=== PATIENT | female | born 1980 | race African-American/Black ===

== ENCOUNTER 2017-01-25 20:14 | Emergency (ER) | payer OTHER ==
[~2017-01-25 20:14] MED LIST: ACETAMINOPHEN650 M1 PO; ALDACTONE25 MG PO; BACTRIM DS TABL1 TA1 PO; BLOOD PRESSURE PILL; CALCIUM 500 +1 EAC2 PO; CIPRO PO; COREG PO; FIORICET 50-321 EACH PO; FLEXERIL10 MG PO; HCTZ PO; HYDROCHLOROTHIA25 MG PO; HYDROCODON-ACE1 EA11 PO; KCL PO; LASIX PO; LEVAQUIN PO; LEVAQUIN750 MG PO; LISINOPRIL5 MG PO; LOPRESSOR PO; MOTRIN600 MG PO; NAPROXEN PO; PEN-VEE K PO; PHENERGAN PO; PYRIDIUM PO; ULTRAM PO; VICODIN PO; ZITHROMAX1 G/PKT PO
== END 2017-01-25 22:03 | disposition home or self-care (01) ==
LOC: CED 20:14 → CFTX 20:14
DX: K04.7 Periapical abscess without sinus (principal); F17.210 Nicotine dependence, cigarettes, uncomplicated
CPT/HCPCS: 99283

== ENCOUNTER 2017-04-30 20:34 | Emergency (ER) | payer OTHER ==
[~2017-04-30] VITALS: Ht 157.5 cm; Wt 54.0 kg
[2017-04-30 20:55] LABS: URINE SOURCE CLEAN CATCH
[2017-04-30 21:05] LABS: URINE APPEARANCE CLOUDY; URINE BILIRUBIN NEG (NEG); URINE BLOOD NEG (NEG); URINE COLOR YELLOW; URINE GLUCOSE NEG (NEG); URINE KETONE NEG (NEG); URINE LEUKOCYTE ESTERASE NEG (NEG); URINE NITRATE NEG (NEG); URINE PH 6.5 (5-8); URINE PROTEIN NEG (NEG); URINE UROBILINOGEN 0.2 MG/DL (NEG)
[2017-04-30 21:09] LABS: CULTURE INDICATED? NO
== END 2017-04-30 22:45 | disposition home or self-care (01) ==
LOC: CED 20:34
DX: O99.89 Other specified diseases and conditions complicating pregnancy, childbirth and the puerperium (principal); R10.2 Pelvic and perineal pain; I11.0 Hypertensive heart disease with heart failure; I50.9 Heart failure, unspecified; F17.200 Nicotine dependence, unspecified, uncomplicated; Z79.899 Other long term (current) drug therapy
CPT/HCPCS: 81003; 84703; 99284